=== PATIENT | male | born 1970 | race Caucasian/White ===

== ENCOUNTER 2017-03-30 17:10 | Emergency (ER) | payer OTHER ==
[~2017-03-30] VITALS: Ht 177.8 cm; Wt 82.5 kg
[2017-03-30 17:15] VITALS: BP 153/87
== END 2017-03-30 18:43 | disposition home or self-care (01) ==
LOC: ED 17:10
DX: S60.221A Contusion of right hand, initial encounter (principal); Z88.5 Allergy status to narcotic agent; X58.XXXA Exposure to other specified factors, initial encounter; Y93.89 Activity, other specified; Y99.8 Other external cause status; Y92.89 Other specified places as the place of occurrence of the external cause